=== PATIENT | female | born 1955 | race Caucasian/White ===

== ENCOUNTER 2019-07-11 11:17 | Outpatient (CLI) | payer OTHER, SELFPAY ==
--- NOTE | 2019-07-11 11:18 | MM_ITS ---
WS: [id number] BILATERAL DIGITAL SCREENING MAMMOGRAPHY WITH CAD CLINICAL INFORMATION: SCREENING HISTORY: Screening mammogram. No current complaints. COMPARISON: TECHNIQUE: Bilateral CC and MLO views. FINDINGS: The breasts are composed of heterogeneous fibroglandular density tissue, which can limit the detectio n of small underlying mass lesions. No suspicious mass, asymmetry, calcifications, or architectural d istortion. No evidence of malignancy. MM/[place] [id number] IMPRESSION: BI-RADS: 1-Negative FOLLOW UP: 1 Year Follow-up Recommend return to annual screening mammography.
== END 2019-07-11 11:18 | disposition home or self-care (01) ==
LOC: RADSHAW 11:17
PROVIDERS: Family Provider Internal Medicine; PCP Internal Medicine; Visit Provider Internal Medicine
DX: Z12.31 Encounter for screening mammogram for malignant neoplasm of breast (principal)
CPT/HCPCS: 77067

== ENCOUNTER 2020-01-03 13:27 | Outpatient (RCR) | payer OTHER, SELFPAY | END 2020-01-21 23:59 | disposition home or self-care (01) | LOC: SPT 13:27 | PROVIDERS: PCP Internal Medicine; Referring Provider Internal Medicine; Visit Provider Internal Medicine | DX: R68.89 Other general symptoms and signs (principal) | CPT/HCPCS: 97110; 97161 ==

== ENCOUNTER 2020-01-22 06:00 | Outpatient (RCR) | payer OTHER, SELFPAY | END 2020-02-20 23:59 | disposition home or self-care (01) | LOC: SPT 06:00 | PROVIDERS: PCP Internal Medicine; Referring Provider Internal Medicine; Visit Provider Internal Medicine | DX: R68.89 Other general symptoms and signs (principal) | CPT/HCPCS: 97110 ==

== ENCOUNTER 2020-02-21 06:00 | Outpatient (RCR) | payer OTHER, SELFPAY | END 2020-03-22 23:59 | disposition home or self-care (01) | LOC: SPT 06:00 | PROVIDERS: PCP Internal Medicine; Referring Provider Internal Medicine; Visit Provider Internal Medicine | DX: R68.89 Other general symptoms and signs (principal) | CPT/HCPCS: 97110 ==

== ENCOUNTER 2020-08-25 15:15 | Outpatient (CLI) | payer OTHER, SELFPAY ==
--- NOTE | 2020-08-25 15:21 | MM_ITS ---
WS: [id number] BILATERAL DIGITAL SCREENING MAMMOGRAPHY WITH CAD CLINICAL INFORMATION: SCREENING HISTORY: Screening mammogram. No current complaints. COMPARISON: July 11, 2019 TECHNIQUE: Bilateral CC and MLO views. FINDINGS: The breasts are composed of heterogeneous fibroglandular density tissue, which can limit the detectio n of small underlying mass lesions. No suspicious mass, asymmetry, calcifications, or architectural d istortion. No evidence of malignancy. MM/[place] [id number] IMPRESSION: BI-RADS: 2-Benign FOLLOW UP: 1 Year Follow-up Recommend return to annual screening mammography.
== END 2020-08-25 15:16 | disposition home or self-care (01) ==
LOC: RADSHAW 15:19
PROVIDERS: PCP Internal Medicine; Visit Provider Internal Medicine
DX: Z12.31 Encounter for screening mammogram for malignant neoplasm of breast (principal)
CPT/HCPCS: 77067

== ENCOUNTER 2020-11-11 08:04 | Outpatient (CLI) | payer SELFPAY ==
[2020-11-11 08:28] LABS: HF Add Manual Diff No
[2020-11-11 08:45] LABS: Basophils % 0.7 %; Eosinophils # 0.1 10^3/uL (0.0-0.8); Eosinophils % 2.5 %; Hematocrit 38.1 % (37.0-47.0); Hemoglobin 12.2 g/dL (11.5-15.3); Lymphocytes # 1.8 10^3/uL (0.8-4.8); Lymphocytes % 31.7 %; Mean Corpuscular Hemoglobin 28.3 pg (28.0-34.0); Mean Corpuscular Volume 88.4 fL (81-99); Mean Platelet Volume 9.2 fL (7.4-10.4); Monocytes # 0.4 10^3/uL (0.2-0.9); Monocytes % 7.5 %; Neutrophils # 3.21 10^3/uL (1.8-7.7); Neutrophils % 57.2 %; Nucleated Red Blood Cells % 0 %; Platelet Count 255 10^3/cmm (130-400); Red Blood Count 4.31 10^6/uL (4.1-5.3); Red Cell Distribution Width 13.3 % (12.1-15.1); White Blood Count 5.6 10^3/uL (4.0-10.0)
[2020-11-11 08:59] LABS: Alanine Aminotransferase 14 U/L (0-33); Albumin Level 4.3 g/dL (3.5-5.2); Alkaline Phosphatase 47 IU/L (35-105); Anion Gap 10.3 (5-19); Aspartate Amino Transferase 19 U/L (0-32); Blood Urea Nitrogen 16 mg/dL (8-23); Calcium 8.7 mg/dL (8.5-10.5); Carbon Dioxide 28 mmol/L (22-29); Chloride 105 mmol/L (98-107); Chol HDL Ratio 3.03 mg/dL (0.0-4.40); Cholesterol 215 mg/dL (0-200); Globulin 2.9 g/dL (1.3-4.6); Glomerular Filtration Rate 84.5 mL/min (90-130); Glucose 104 mg/dL (65-115); HDL Cholesterol 71 mg/dL (60-100); LDL Cholesterol Calculated 122 mg/dL (50-129); LDL HDL Ratio 1.72 RATIO (0.00-3.22); Osmolality Calculated 289 mOsm/kg (285-295); Potassium 4.3 mmol/L (3.5-5.1); Sodium 139 mmol/L (136-145); Total Bilirubin 0.4 mg/dL (0.15-1.2); Total Protein 7.2 g/dL (6.6-8.7); Triglycerides 109 mg/dL (0-150)
[2020-11-11 09:18] LABS: Estmated Average Glucose 103; Hemoglobin A1C 5.2 % (4.0-6.0)
== END 2020-11-11 08:05 | disposition home or self-care (01) ==
PROVIDERS: PCP Internal Medicine; Visit Provider Dermatology
DX: Z13.9 Encounter for screening, unspecified (principal)

== ENCOUNTER → 2020-12-22 09:46 | Outpatient (BNVA) | payer OTHER, SELFPAY | PROVIDERS: PCP Internal Medicine; Referring Provider Internal Medicine; Visit Provider Podiatrist Foot & Ankle Surgery | DX: M79.671 Pain in right foot (principal); M79.672 Pain in left foot | CPT/HCPCS: 73630 ==

== ENCOUNTER 2020-12-31 12:56 | Outpatient (RCR) | payer OTHER, SELFPAY | END 2021-01-20 23:59 | disposition home or self-care (01) | LOC: SPT 12:56 | PROVIDERS: PCP Internal Medicine; Referring Provider Podiatrist Foot & Ankle Surgery; Visit Provider Podiatrist Foot & Ankle Surgery | DX: M72.9 Fibroblastic disorder, unspecified (principal) | CPT/HCPCS: 97033; 97140; 97162 ==

== ENCOUNTER 2021-01-24 13:34 | Emergency (ER) | payer OTHER, SELFPAY ==
[2021-01-24 13:51] VITALS: BP 127/74; PULSE 93; RESP 16; TEMP 36.1; O2SAT 99; BMI 30.5
--- NOTE | 2021-01-24 14:05 | XRR_ITS ---
PROCEDURE INFORMATION: Exam: XR Left Foot Exam date and time: 01/24/2021 2:05 PM Age: 65 years old Clinical indication: Injury or trauma; Fall; Blunt trauma; Foot; Left TECHNIQUE: Imaging protocol: XR Left foot. Views: 3 or more views. COMPARISON: No relevant prior studies available. FINDINGS: Bones/joints: Transverse fracture through the base of the 5th metatarsal with a few small displaced fragments. Soft tissues: Soft tissue swelling adjacent to the fracture site. XR/XR foot LT min 3V* [id number] IMPRESSION: Transverse fracture through the base of the 5th metatarsal.
--- NOTE | 2021-01-24 14:46 | W.ED.EXTPRO ---
HPI - Extremity Problem General: Chief complaint: Extremity Injury, Lower Stated complaint: L foot injury Time Seen by Provider: 01/24/21 14:04 Source: patient Mode of arrival: wheelchair Limitations: no limitations History of Present Illness: HPI Narrative: Patient misstep while holding a laundry basket. Twisted left foot at 10 AM today. At home is elevated, taken ibuprofen, and used ice therapy but pain has become more intense. Patient is no longer able to ambulate. Pain Consistency: constant Location: left Severity scale (1-10): 6 Quality: dull and constant Radiation: none Relieving factors: nothing Exacerbating factors: weight bearing and walking Associated symptoms: Reports no associated symptoms Review of Systems General: Reports: 10 or more systems reviewed and unremarkable except in HPI and below PFSH ED PFSH: Medical History (Updated 01/24/21 @ 15:41 by Fidelina Nixon APRN) Hot flashes, menopausal Irritable bowel syndrome with diarrhea Vitamin B12 deficiency neuropathy Surgical History S/P cholecystectomy S/P colonoscopy Status post carpal tunnel release of both wrists Family History Mother Stroke Other Cancer Hypertension Social History Smoking and tobacco status: never smoked Alcohol intake: current Alcohol intake frequency: few times a week Alcohol type: wine History of recent travel: No Physical Exam Const: COMMON NORMALS: no acute distress, average body habitus, patient oriented x3, no limitations, healthy appearing, alert and well nourished GENERAL APPEARANCE: cooperative, comfortable and well kempt HENMT: COMMON NORMALS: normocephalic, atraumatic, hearing grossly normal bilaterally, external ears normal, EAC's normal, TM's normal bilaterally, Normal external nose present, Normal nasal mucous membranes and turbinates present, moist oral mucous membranes and oropharynx normal HEAD & SCALP: normal to inspection, normocephalic and atraumatic NOSE: Normal external nose present and Normal nasal mucous membranes and turbinates present EXTERNAL EAR: Yes external ears normal EXTERNAL AUDITORY CANAL: EAC's normal TYMPANIC MEMBRANE: TM's normal bilaterally Eye: COMMON NORMALS: Equal, round and reactive pupils present, EOMs intact bilaterally, conjunctivae normal, no scleral icterus, no papilledema, normal visual freeman by confrontation and fundi normal bilaterally GENERAL EYE: appearance normal, both eyes and all related structures CONJUNCTIVA: Yes conjunctivae normal PUPIL: Yes Equal, round and reactive pupils present DIRECT OPHTHALMOSCOPY: Yes no papilledema and Yes fundi normal bilaterally Neck/C-Spine: COMMON NORMALS: full ROM, no lymphadenopathy and no JVD Lymph: LYMPHATIC: no lymphadenopathy noted Resp: COMMON NORMALS: normal respiratory effort, No retractions, No use of accessory muscles and clear to auscultation bilaterally EFFORT & INSPECTION: Yes able to speak in complete sentences AUSCULTATION: clear to auscultation bilaterally Cardio: COMMON NORMALS: no JVD, regular rate, S1 normal heart sound present and S2 normal heart sound present RATE: regular rate HEART SOUNDS: S1 normal heart sound present and S2 normal heart sound present GI: COMMON NORMALS: Normal to inspection, nondistended, normoactive bowel sounds present Extremity: GENERAL: Yes normal exam except as noted LEFT LOWER EXTREMITY: Yes ankle joint Left ankle: Yes inspection (Diffuse edema nonpitting), Yes ROM (Limited due to pain) and Yes neurovascular exam (Intact) Neuro: COMMON NORMALS: patient oriented x3, moves all extremities, no focal motor deficits and no sensory deficits noted SENSORIUM/ORIENTATION: Yes alert Psych: COMMON NORMALS: mental status grossly normal, Normal thought process present, cooperative, normal affect, speech normal, activity/motor behavior normal, denies hallucinations, denies homicidal ideation and denies suicidal ideation APPEARANCE: Yes well kempt SPEECH: Yes normal speech THOUGHT PROCESS: Normal thought process present Skin: COMMON NORMALS: no rashes or lesions noted, no wounds, turgor normal, no jaundice, no petechiae and no mottling GENERAL SKIN EXAM: no rashes or lesions noted and turgor normal Course Vital Signs: Vital signs: Vital Signs Temperature 96.9 F L 01/24/21 13:51 Pulse Rate 93 01/24/21 13:51 Respiratory Rate 16 01/24/21 13:51 Blood Pressure 127/74 01/24/21 13:51 Pulse Oximetry 99 01/24/21 13:51 MDM - Extremity (Nontraumatic) MDM Narrative: Medical decision making narrative: Patient established with Dr. Zhou podiatry and prefers to follow-up with him. We will schedule to follow-up with podiatry for metatarsal fracture within the next week. Patient is immobilized with splint and currently using crutches. Imaging Data^: Xray Ortho: Radiologist's impression: [id number], [place] [address]WObs ReportSigned Patient: No Aguilar #: [id number]: [id number]#:[id number]/Sex: 65 / FADM Date: 01/24/21Loc: ERRoom/Bed:Attending Dr: Ordering Provider/Ordering MD: Fidelina Nixon Date of Service: 01/24/21 Procedure(s): XR foot LT min 3V* [id number] Accession Number(s): [id number] Report Number: [id number] PROCEDURE INFORMATION: Exam: XR Left Foot Exam date and time: 01/24/2021 2:05 PM Age: 65 years old Clinical indication: Injury or trauma; Fall; Blunt trauma; Foot; Left TECHNIQUE: Imaging protocol: XR Left foot. Views: 3 or more views. COMPARISON: No relevant prior studies available. FINDINGS: Bones/joints: Transverse fracture through the base of the 5th metatarsal with a few small displaced fragments. Soft tissues: Soft tissue swelling adjacent to the fracture site. XR/XR foot LT min 3V* [id number] IMPRESSION: Transverse fracture through the base of the 5th metatarsal. Other Imaging: Radiologist's impression: [place] [id number], [place] [address]HIby ReportSigned Patient: No Aguilar #: [id number]: [id number]#:[id number]/Sex: 65 / FADM Date: 01/24/21Loc: ERRoom/Bed:Attending Dr: Ordering Provider/Ordering MD: Fidelina Nixon Date of Service: 01/24/21 Procedure(s): XR ankle LT min 3V* [id number] Accession Number(s): [id number] Report Number: [id number] PROCEDURE INFORMATION: Exam: XR Left Ankle Exam date and time: 01/24/2021 2:53 PM Age: 65 years old Clinical indication: Injury or trauma; Fall; Blunt trauma; Ankle; Left; Additional info: Ankle injury TECHNIQUE: Imaging protocol: XR Left ankle. Views: 3 or more views. COMPARISON: CR (LOW EXM, ) 01/24/2021 2:40 PM FINDINGS: Bones/joints: No acute fracture. Joint spaces are preserved. Soft tissues: Soft tissue swelling around the ankle. XR/XR ankle LT min 3V* [id number] IMPRESSION: No acute osseous abnormalities of the left ankle. Dictated By:Franky Escobar DOSigned By:Franky Escobar DOSigned Date/Time:01/24/21 1520DD/ 151 Discharge Plan Discharge Patient Disposition: Home Clinical Impression: Metatarsal fracture Qualifiers: Encounter type: initial encounter Metatarsal bone: fifth Fracture type: closed Fracture alignment: displaced Laterality: left Qualified Code(s): S92.352A - Displaced fracture of fifth metatarsal bone, left foot, initial encounter for closed fracture Condition: Stable Prescriptions: New hydrocodone-acetaminophen 5-325 mg tablet 1 tab PO Q6H 7 Days Qty: 28 RF: 0 No Action [id number]-algal oil [Foltanx RF] 3 mg-35 mg-2 mg -90.314 mg capsule 1 cap PO BID RF: 0 Darcy's wort 300 mg capsule 300 mg PO TID RF: 0 melatonin 5 mg capsule PO RF: 0 naproxen sodium [Aleve] 220 mg tablet 220 mg PO BID PRNRF: 0 omega-3 fatty acids 1,000 mg capsule 1,000 mg PO BID RF: 0 calcium carbonate-vitamin D3 [Calcium 500 + D] 500 mg(1,250mg) -400 unit tablet 1 tab PO BID RF: 0 cyanocobalamin (vitamin B-12) 1,000 mcg/mL solution 1,000 mcg IM ONCE Qty: 100 RF: 0 medroxyprogesterone 2.5 mg tablet 1.25 mg PO DAILY Qty: 90 RF: 3 (DME) Custom Molded Sole Supports See Rx Instructions .Route .MEDSUPPLY Qty: 1 RF: 0 estradiol 0.5 mg tablet See Rx Instructions .ROUTE .COMPLEX Qty: 90 RF: 2 Discharge Orders: Discharge ED (Routine); Ordered 01/24/21 Ordered By: Fidelina Nixon Referrals: Edil Roberson MD [Primary Care Provider] - Hong Zhou DPM [Physician] - 4-7 days Discharge Diet: Usual diet Discharge Activity: Limit activity as instructed Patient Instructions: Opioid Safety Coding Level of Care Code ED Boilermaker Pipe Fitter for Chg Fwd Exam Comprehensive
--- NOTE | 2021-01-24 14:53 | XRR_ITS ---
PROCEDURE INFORMATION: Exam: XR Left Ankle Exam date and time: 01/24/2021 2:53 PM Age: 65 years old Clinical indication: Injury or trauma; Fall; Blunt trauma; Ankle; Left; Additional info: Ankle injury TECHNIQUE: Imaging protocol: XR Left ankle. Views: 3 or more views. COMPARISON: CR (LOW EXM, ) 01/24/2021 2:40 PM FINDINGS: Bones/joints: No acute fracture. Joint spaces are preserved. Soft tissues: Soft tissue swelling around the ankle. XR/XR ankle LT min 3V* [id number] IMPRESSION: No acute osseous abnormalities of the left ankle.
[2021-01-24 16:19] VITALS: BP 117/69; PULSE 72; RESP 14; TEMP 36.6; O2SAT 99
== END 2021-01-24 16:28 | disposition home or self-care (01) ==
PROVIDERS: Emergency Provider Nurse Practitioner Family; PCP Internal Medicine
DX: S92.352A Displaced fracture of fifth metatarsal bone, left foot, initial encounter for closed fracture (principal); X50.1XXA Overexertion from prolonged static or awkward postures, initial encounter
CPT/HCPCS: 29515; 73610; 73630; 99283; E0114

== ENCOUNTER 2021-01-29 14:28 | Outpatient (CLI) | payer OTHER, SELFPAY | END 2021-01-29 14:29 | disposition home or self-care (01) | LOC: SPT 14:28 | PROVIDERS: PCP Internal Medicine; Visit Provider Podiatrist Foot & Ankle Surgery | DX: Z46.89 Encounter for fitting and adjustment of other specified devices (principal); M72.2 Plantar fascial fibromatosis | CPT/HCPCS: 97760; L4361 ==

== ENCOUNTER → 2021-02-02 10:02 | Outpatient (BNVA) | payer OTHER, SELFPAY | PROVIDERS: PCP Internal Medicine; Visit Provider Podiatrist Foot & Ankle Surgery | DX: Z01.812 Encounter for preprocedural laboratory examination (principal); Z20.822 Contact with and (suspected) exposure to COVID-19 | CPT/HCPCS: 87635 ==

== ENCOUNTER 2021-02-06 06:16 | Day surgery (SDC) | payer OTHER, SELFPAY ==
[2021-02-05 13:42] VITALS: BMI 28.7
[2021-02-06] VITALS (8 sets, daily range): BP systolic 107–146; BP diastolic 67–76; PULSE 67–94; RESP 12–22; TEMP 36.3–36.6; O2SAT 96–100
--- NOTE | 2021-02-06 | SCC_ITS ---
Procedure Done: Open reduction internal fixation left fifth metatarsal fracture CPT code 23946 3 seconds of fluoroscopic guidance, for a cumulative dose of 0.047 mGy, was provided to Dr. Zhou by the radiology department. C-arm images of the LEFT foot were saved for the patient's permanent record. [facility]
[2021-02-06] MEDS: sodium chloride 0.9% 1,000 ML 30 ML IV (07:12)
--- NOTE | 2021-02-06 08:24 | ANES.PREANE2 ---
Pre-Anesthetic Assessment Pre-Anesthetic Assessment: Height/Weight: Height 1.57 m Weight 71.214 kg Temp Pulse Resp BP Pulse Ox 97.9 F 71 18 131/69 99 02/06/21 06:39 02/06/21 06:39 02/06/21 06:39 02/06/21 06:39 02/06/21 06:39 Preop Diagnosis: Left fifth metatarsal fracture Proposed Procedure: Operation Date: 02/06/21 08:00 Proposed Procedures p ORIF Metatarsal 70326 S92.352A(Left) - Hong Zhou DPM Was Beta Sandra taken within 24 hours: N/A Was Clonidine taken within 24 hours: N/A Last intake: Intake Last Liquid Date 02/05/21 Last Liquid Time 23:30 Last Solid Date 02/05/21 Last Solid Time 23:30 Social: Social History: No alcohol and No tobacco Exam: Pre-Anes Outpt Exam: alert, oriented x 3, clear to auscultation bilaterally and regular rate & rhythm Airway: Submandibular: WNL Cervical ROM: WNL MP: 2 Dentition: Full History/ROS: No significant history except as noted GI: Comments: IBS Neuropsych: Neuropsych: Neuropathy (B12 def) Anesthetic Plan: ASA status: 2 Anesthesia: MAC Risk of > 500 ml blood loss (7ml/kg in children): No Meds/Allergies Current Medications: Current Medications Generic Name Dose Route Start Last Admin Trade Name Freq PRN Reason Stop Dose Admin Sodium Chloride 1,000 mls @ 30 ml s/hr 02/06/21 06:45 02/06/21 07:12 Sodium Chloride 0.9% IV 02/07/21 06:44 30 mls/hr .Q24H MARTHA Administration PFSH Anesthesia PFSH: Medical History (Updated 02/02/21 @ 07:36 by Hong Zhou DPM) Hot flashes, menopausal Irritable bowel syndrome with diarrhea Vitamin B12 deficiency neuropathy Surgical History S/P cholecystectomy S/P colonoscopy Status post carpal tunnel release of both wrists Family History Mother Stroke Other Cancer Hypertension Social History Smoking and tobacco status: never smoked Alcohol intake: current Alcohol intake frequency: few times a week Alcohol type: wine History of recent travel: No Data Anesthesia Cardiac Studies: No Data to Display
--- NOTE | 2021-02-06 09:06 | P.HPUD_ITS ---
Surgery/Procedure H&P Update DATE OF PROCEDURE: February 06, 2021 DATE H&P PERFORMED: 01/29/21 H&P UPDATE INFORMATION: I have reviewed H&P completed within last 30 days, I have examined patient prior to procedure, No changes to prior documentation and H&P is in [facility] EMR on date indicated PREOP DIAGNOSIS: Left fifth metatarsal fracture PLANNED PROCEDURE: Operation Date: 02/06/21 08:00 Proposed Procedures p ORIF Metatarsal 75445 S92.352A(Left) - Hong Zhou DPM
[2021-02-06] MEDS: lidocaine 1% INJ 20 mL 15 ML INJECTION (10:16)
--- NOTE | 2021-02-06 10:33 | P.PCN_ITS ---
PACU note PACU note: VSS, Good respiratory effort, report to COLLECTIONS REPRESENTATIVE Post-Anesthesia Exam: awake
--- NOTE | 2021-02-06 10:33 | PM.PACU ---
PACU note PACU note: VSS, Good respiratory effort, report to EVENT TECHNICIAN Post-Anesthesia Exam: awake
--- NOTE | 2021-02-06 10:34 | XR_ITS ---
WS: [id number] XR foot LT min 3V* [id number] REASON FOR EXAM: Postoperative ORIF left fifth metatarsal with hook plate FINDINGS: Plate and screw fixation of horizontal fracture through the proximal most fifth metatarsal. Surgical appliance and fracture fragments are in good position and alignment. XR/XR foot LT min 3V* [id number] IMPRESSION: Postoperative left foot as above.
--- NOTE | 2021-02-06 10:36 | P.OP_ITS ---
Operative Report Date of procedure: February 06, 2021 Pre-op Diagnosis: Left fifth metatarsal fracture Post-op diagnosis: same Post-op Findings: Fracture of the left fifth metatarsal Procedure Done: Open reduction internal fixation left fifth metatarsal fracture CPT code 21611 Implants: Arlington 28 Smith hook plate, Arlington 28 2.5 mm locking screws x3, 3-0 Vicryl, 4-0 nylon Specimens removed/disposition: None Pathology: none sent Surgeon: Hong Zhou D.P.M. [employer] Counter Assistant: Jhon Anesthesia: MAC Estimated blood loss: Less than 5 mL Tourniquet time: Approximately 35 minutes IV fluids: None Urine output: None Complications: None Findings: None Condition: stable Disposition: PACU Brief History: Patient sustained a left fifth metatarsal fracture after discussing potential delayed healing due to this injury being notorious for delayed healing due to tendinous insertion and decreased vascularity her preference was open reduction internal fixation to help reduce nonunion or delayed healing. Risks include pain, bleeding, numbness, infection, hardware irritation, hardware failure, delayed union, malunion, nonunion, damage to adjacent soft tissue structures, chronic swelling, neuritis, need for further surgical intervention. Patient is agreeable wishes to proceed, no guarantees written, expressed or implied. Informed consent signed by patient myself, Covid screening negative, she has been n.p.o. since midnight initialed her left foot. Procedure: Under mild sedation the patient was brought to the operating room and placed on the operating table in supine position. A timeout was performed. Anesthesia was then administered by the anesthesia service. Local anesthesia injected by myself reverse Hart block left foot. Total of 30 cc of one-to-one mixture 1% lidocaine 0.5 sent Marcaine plain. Well-padded pneumatic tourniquet applied to the left ankle. Left lower extremity was then scrubbed, prepped and draped utilizing normal aseptic technique. Left foot was wrapped with an Esmarch bandage and the tourniquet inflated to 250 mmHg. Attention was directed to the dorsal lateral aspect of the left fifth metatarsal which was palpated and skin incision planned out in a curvilinear fashion a incision was made with a #15 blade directly over the fifth metatarsal base. Dissection carried down to the periosteum and extensor retinaculum utilizing combination of blunt and sharp technique. Care was taken to retract and preserve neurovascular and tendinous structures. All bleeders were ligated and cauterized as necessary. Periosteal incision was made and the fifth metatarsal fracture was evacuated of its hematoma with curettage of the bone. This was then flushed with saline solution reduced and fixated utilizing a Arlington 28 Smith double hook plate with excellent bony apposition and compression noted. This was confirmed with intraoperative fluoroscopy. Total of 3 screws locking were utilized distal to the fracture these were 2.5 millimeter screws. Confirm placement with intraoperative C arm noted to be excellent in all 3 planes. Stable fracture appreciated. The incision was flushed with saline solution, extensor retinaculum and subcutaneous tissue closed with 3-0 Vicryl. Skin closed with 4-0 nylon in a horizontal mattress technique. Incision was then dressed with Adaptic, sterile 4 x 4's, Kerlix and Mack wrap and tourniquet was deflated and a prompt hyperemic response was noted to the distal digits of the left foot. Patient tolerated the procedure and anesthesia well and was transferred to the PACU with vital signs stable and vascular status intact. Following a period of postoperative monitoring she will be discharged home is to remain nonweightbearing to the left lower extremity she will keep your postoperative dressings clean, dry and intact for 1 week follow-up next Tuesday on February 13, 2021 for nurse visit and dressing change. She was prescribed hydrocodone 10/325 mg to be taken every 4-6 hours as needed for pain. May heel touch only for transfers. She was given discharge instructions and my cell phone number to contact with any postoperative questions or concerns.
[2021-02-06] MEDS: HYDROcodone-acetaminophen 10-325 mg Tablet 1 TAB PO (11:13)
--- NOTE | 2021-02-06 13:37 | ANE.PACU2 ---
Inpatient post-anesthesia follow up: Airway intact: Yes Vital signs: Temperature 97.3 F Pulse Rate 67 Respiratory Rate 15 Blood Pressure 126/72 Pulse Oximetry 99 Oxygen Delivery Me thod Room Air Oxygen Flow Rate Fraction of Inspir ed Oxygen Hydration adequate: Yes Nausea and vomiting: No Pain level: 2 Mental status: Baseline
== END 2021-02-06 11:31 | disposition home or self-care (01) ==
PROVIDERS: PCP Internal Medicine; Visit Provider Podiatrist Foot & Ankle Surgery
PROC: (CPT 28485; principal; 2021-02-06 07:50)
DX: S92.352G Displaced fracture of fifth metatarsal bone, left foot, subsequent encounter for fracture with delayed healing (principal); W19.XXXD Unspecified fall, subsequent encounter
CPT/HCPCS: 28485; 73630; 76000; C1713; J0690; J2704; J3010; J3490; J7030

== ENCOUNTER → 2021-02-13 08:32 | Outpatient (BNVA) | payer OTHER, SELFPAY | PROVIDERS: PCP Internal Medicine; Visit Provider Podiatrist Foot & Ankle Surgery | DX: S92.352D Displaced fracture of fifth metatarsal bone, left foot, subsequent encounter for fracture with routine healing (principal); X58.XXXD Exposure to other specified factors, subsequent encounter | CPT/HCPCS: 73630 ==

== ENCOUNTER → 2021-02-19 09:31 | Outpatient (BNVA) | payer OTHER, SELFPAY | PROVIDERS: PCP Internal Medicine; Visit Provider Podiatrist Foot & Ankle Surgery | DX: M79.671 Pain in right foot (principal); M79.672 Pain in left foot | CPT/HCPCS: 73630 ==

== ENCOUNTER → 2021-03-05 10:19 | Outpatient (BNVA) | payer OTHER, SELFPAY | PROVIDERS: PCP Internal Medicine; Visit Provider Podiatrist Foot & Ankle Surgery | DX: Z47.89 Encounter for other orthopedic aftercare (principal); S92.352D Displaced fracture of fifth metatarsal bone, left foot, subsequent encounter for fracture with routine healing; X58.XXXD Exposure to other specified factors, subsequent encounter | CPT/HCPCS: 73630 ==

== ENCOUNTER → 2021-03-23 14:23 | Outpatient (BNVA) | payer OTHER, SELFPAY | PROVIDERS: PCP Internal Medicine; Visit Provider Podiatrist Foot & Ankle Surgery | DX: M79.671 Pain in right foot (principal); M79.672 Pain in left foot; Z47.89 Encounter for other orthopedic aftercare; S92.352D Displaced fracture of fifth metatarsal bone, left foot, subsequent encounter for fracture with routine healing; X58.XXXD Exposure to other specified factors, subsequent encounter | CPT/HCPCS: 73630 ==

== ENCOUNTER → 2021-04-06 13:09 | Outpatient (BNVA) | payer OTHER, SELFPAY | PROVIDERS: PCP Internal Medicine; Visit Provider Podiatrist Foot & Ankle Surgery | DX: Z47.89 Encounter for other orthopedic aftercare (principal); S92.352D Displaced fracture of fifth metatarsal bone, left foot, subsequent encounter for fracture with routine healing; X58.XXXD Exposure to other specified factors, subsequent encounter | CPT/HCPCS: 73630 ==

== ENCOUNTER → 2021-05-20 08:02 | Outpatient (BNVA) | payer OTHER, SELFPAY | PROVIDERS: PCP Internal Medicine; Visit Provider Podiatrist Foot & Ankle Surgery | DX: Z98.890 Other specified postprocedural states (principal); S92.355D Nondisplaced fracture of fifth metatarsal bone, left foot, subsequent encounter for fracture with routine healing; X58.XXXD Exposure to other specified factors, subsequent encounter | CPT/HCPCS: 73630 ==

== ENCOUNTER 2021-06-02 07:14 | Outpatient (RCR) | payer OTHER, SELFPAY | END 2021-06-22 23:59 | disposition home or self-care (01) | LOC: SPT 07:14 | PROVIDERS: PCP Internal Medicine; Referring Provider Podiatrist Foot & Ankle Surgery; Visit Provider Podiatrist Foot & Ankle Surgery | DX: M72.2 Plantar fascial fibromatosis (principal) | CPT/HCPCS: 97161 ==

== ENCOUNTER → 2021-06-11 13:01 | Outpatient (BNVA) | payer OTHER, SELFPAY | PROVIDERS: PCP Internal Medicine; Visit Provider Podiatrist Foot & Ankle Surgery | DX: M79.672 Pain in left foot (principal); M72.2 Plantar fascial fibromatosis; Z98.890 Other specified postprocedural states | CPT/HCPCS: 73630 ==

== ENCOUNTER 2021-07-06 14:36 | Outpatient (CLI) | payer OTHER, SELFPAY | END 2021-07-06 14:37 | disposition home or self-care (01) | LOC: SPT 14:37 | PROVIDERS: PCP Internal Medicine; Visit Provider Podiatrist Foot & Ankle Surgery | DX: Z47.89 Encounter for other orthopedic aftercare (principal); M72.2 Plantar fascial fibromatosis; M79.672 Pain in left foot | CPT/HCPCS: 97760; L3030 ==

== ENCOUNTER 2021-07-14 08:58 | Outpatient (CLI) | payer OTHER, SELFPAY ==
--- NOTE | 2021-07-14 09:00 | XR_ITS ---
WS: [id number] SCREENING DEXA SCAN Blockboard CLINICAL INFORMATION: recent fracture COMPARISON: None. FINDINGS: The L1-L4 bone mineral density measures 1.170 g/cm2. This corresponds to a T score score of -0.1 and Z score of 1.1. Left femoral neck bone mineral density measures 1.032 g/cm2. This corresponds to a T score of 0.2 and Z score of 1.1. Right femoral neck bone mineral density measures 1.033 g/cm2. This corresponds to a T score 0.2of and Z score of 1.1. Mean femoral neck bone mineral density measures 1.033 g/cm2. This corresponds to a T score of 0.2 and Z score of 1.1. XR/XR DEXA axial skeleton* [id number] IMPRESSION: Normal bone mineralization. Patient's FRAX calculated 10 year probability for major osteoporotic fracture i s 10.0 % and osteoporotic hip fracture is 0.2%.
== END 2021-07-14 08:59 | disposition home or self-care (01) ==
LOC: RAD 09:01
PROVIDERS: PCP Internal Medicine; Visit Provider Internal Medicine
DX: S92.902A Unspecified fracture of left foot, initial encounter for closed fracture (principal); X58.XXXA Exposure to other specified factors, initial encounter
CPT/HCPCS: 77080

== ENCOUNTER 2021-10-13 09:12 | Outpatient (CLI) | payer OTHER, SELFPAY ==
--- NOTE | 2021-10-13 09:24 | MM_ITS ---
WS: [id number] VIEWS: MLO and CC views both breasts. 3D digital tomosynthesis is also included in this exam. Comparison made with prior exam of 04/01/2015, 05/05/2016, 05/30/2017. 06/19/2018, 07/11/2019, 08/25/2020. Findings: There was no sign of mass, architectural distortion or suspicious calcification in either breast. He terogeneously dense MM/[place] [id number] Impression: BI-RADS: 2-Benign FOLLOW-UP: 1 Year Follow-up This mammogram was also analyzed by the Computer Aided Detection System R2 Imag e Mulling Machine Operator.
== END 2021-10-13 09:13 | disposition home or self-care (01) ==
PROVIDERS: PCP Internal Medicine; Visit Provider Internal Medicine
DX: Z12.31 Encounter for screening mammogram for malignant neoplasm of breast (principal)
CPT/HCPCS: 77063; 77067

== ENCOUNTER 2021-11-03 08:34 | Outpatient (CLI) | payer OTHER, SELFPAY ==
[2021-11-03 09:14] LABS: HF Add Manual Diff No
[2021-11-03 09:20] LABS: Basophils % 0.7 %; Eosinophils # 0.1 10^3/uL (0.0-0.8); Hematocrit 36.6 % (37.0-47.0); Hemoglobin 12.2 g/dL (11.5-15.3); Lymphocytes # 1.9 10^3/uL (0.8-4.8); Lymphocytes % 32.3 %; Mean Corpuscular HGB Conc 33.3 g/dL (30.0-36.0); Mean Corpuscular Hemoglobin 28.4 pg (28.0-34.0); Mean Corpuscular Volume 85.1 fl (81-99); Mean Platelet Volume 9.2 fL (7.4-10.4); Monocytes # 0.4 10^3/uL (0.2-0.9); Neutrophils # 3.46 10^3/uL (1.8-7.7); Neutrophils % 57.7 %; Nucleated Red Blood Cells % 0 %; Platelet Count 244 10^3/cmm (130-400); Red Cell Distribution Width 13.3 % (12.1-15.1)
[2021-11-03 09:36] LABS: Estmated Average Glucose 105; Hemoglobin A1C 5.3 % (4.0-6.0)
[2021-11-03 09:45] LABS: Alanine Aminotransferase 15 U/L (0-33); Albumin Level 4.1 g/dL (3.5-5.2); Alkaline Phosphatase 45 IU/L (35-105); Anion Gap 14.7 (5-19); Aspartate Amino Transferase 18 U/L (0-32); Blood Urea Nitrogen 14 mg/dL (8-23); Calcium 9.2 mg/dL (8.5-10.5); Carbon Dioxide 25 mmol/L (22-29); Chloride 103 mmol/L (98-107); Chol HDL Ratio 2.59 mg/dL (0.0-4.40); Cholesterol 194 mg/dL (0-200); Glomerular Filtration Rate 84.2 mL/min (90-130); Glucose 94 mg/dL (65-115); HDL Cholesterol 75 mg/dL (60-100); LDL Cholesterol Calculated 100 mg/dL (50-129); LDL HDL Ratio 1.33 RATIO (0.00-3.22); Osmolality Calculated 286 mOsm/kg (285-295); Potassium 4.7 mmol/L (3.5-5.1); Sodium 138 mmol/L (136-145); Total Bilirubin 0.5 mg/dL (0.15-1.2); Total Protein 7.1 g/dL (6.6-8.7); Triglycerides 94 mg/dL (0-150)
== END 2021-11-03 08:35 | disposition home or self-care (01) ==
LOC: LAB 08:35
PROVIDERS: PCP Internal Medicine; Visit Provider Dermatology
DX: Z00.8 Encounter for other general examination (principal)
CPT/HCPCS: 36415

== ENCOUNTER → 2022-09-29 12:06 | Outpatient (BNVA) | payer MEDICARE, SELFPAY | PROVIDERS: PCP Family Medicine; Visit Provider Family Medicine | DX: E53.8 Deficiency of other specified B group vitamins (principal); G63 Polyneuropathy in diseases classified elsewhere | CPT/HCPCS: 82607; 85025 ==

== ENCOUNTER 2022-10-15 08:36 | Outpatient (CLI) | payer MEDICARE, SELFPAY ==
--- NOTE | 2022-10-15 08:57 | MM_ITS ---
WS: [id number] BILATERAL SCREENING DIGITAL TOMOSYNTHESIS MAMMOGRAM WITH CAD HISTORY: SCREENING COMPARISON: 10/13/2021, 08/25/2020 Bilateral CC and MLO views with tomosynthesis and synthetic mammography submitted. Computer aided det ection analyzed. Breast composition: The breasts are heterogeneously dense, which may obscure small masses. No suspici ous masses, microcalcifications or architectural distortion. MM/[place] [id number] IMPRESSION: BI-RADS: 1-Negative FOLLOW UP: 1 Year Follow-up
== END 2022-10-15 08:37 | disposition home or self-care (01) ==
PROVIDERS: PCP Family Medicine; Visit Provider Family Medicine
DX: Z12.31 Encounter for screening mammogram for malignant neoplasm of breast (principal)
CPT/HCPCS: 77063; 77067

== ENCOUNTER → 2023-03-02 11:23 | Outpatient (BNVA) | payer MEDICARE, SELFPAY | PROVIDERS: PCP Family Medicine; Visit Provider Family Medicine | DX: K90.89 Other intestinal malabsorption (principal); Z13.6 Encounter for screening for cardiovascular disorders; E53.8 Deficiency of other specified B group vitamins; G63 Polyneuropathy in diseases classified elsewhere | CPT/HCPCS: 80053; 80061; 82607 ==

== ENCOUNTER 2023-10-21 11:00 | Outpatient (CLI) | payer MEDICARE, SELFPAY ==
--- NOTE | 2023-10-21 11:13 | MM_ITS ---
WS: [id number] VIEWS: MLO and CC views both breasts. 3D digital tomosynthesis is also included in this exam. Comparison made with prior exam of 09/22/2007, 11/01/2008, 11/04/2009, 11/06/2010, 12/16/2011, 02/05/2013, , 04/01/2015, 05/05/2016, 05/30/2017, 06/19/2018, 07/11/2019, 08/25/2020, 10/13/2021, 10/15/2022. Findings: There was no sign of mass, architectural distortion or suspicious calcification in either breast. The breasts are heterogeneously dense which may obscure small masses MM/[place] [id number] Impression: BI-RADS: 2-Benign finding. FOLLOW-UP: 1 Year Follow-up This mammogram was also analyzed by the Computer Aided Detection System R2 Imag e Floor Coverings Installer.
== END 2023-10-21 11:01 | disposition home or self-care (01) ==
LOC: RAD 11:01
PROVIDERS: PCP Family Medicine; Visit Provider Family Medicine
DX: Z12.31 Encounter for screening mammogram for malignant neoplasm of breast (principal)
CPT/HCPCS: 77063; 77067

== ENCOUNTER → 2024-03-19 08:29 | Outpatient (BNVA) | payer MEDICARE, SELFPAY | PROVIDERS: PCP Family Medicine; Visit Provider Family Medicine | DX: Z00.00 Encounter for general adult medical examination without abnormal findings (principal); E03.9 Hypothyroidism, unspecified; Z13.6 Encounter for screening for cardiovascular disorders; E53.8 Deficiency of other specified B group vitamins; G63 Polyneuropathy in diseases classified elsewhere | CPT/HCPCS: 80053; 80061; 82607; 84439; 84443; 85025 ==

== ENCOUNTER → 2024-05-09 08:30 | Outpatient (BNVA) | payer MEDICARE, SELFPAY | PROVIDERS: PCP Family Medicine; Visit Provider Family Medicine | DX: E03.9 Hypothyroidism, unspecified (principal) | CPT/HCPCS: 84443 ==

== ENCOUNTER → 2024-06-29 10:21 | Outpatient (BNVA) | payer MEDICARE, SELFPAY | PROVIDERS: PCP Family Medicine; Visit Provider Family Medicine | DX: E03.9 Hypothyroidism, unspecified (principal) | CPT/HCPCS: 84443 ==

== ENCOUNTER 2024-09-28 20:24 | Emergency (ER) | payer MEDICARE, SELFPAY ==
[2024-09-28 20:30] VITALS: BP 133/70; PULSE 79; RESP 16; TEMP 37.2; O2SAT 100; BMI 30.5
--- NOTE | 2024-09-28 20:34 | PC.NURSE ---
Pt. states that she was running around all day without any problems and then at 1900 this evening she began to have the dizziness.
--- NOTE | 2024-09-28 20:49 | CTR_ITS ---
PROCEDURE INFORMATION: Exam: CT Head Without Contrast Exam date and time: 09/28/2024 9:07 PM Age: 69 years old Clinical indication: C/O dizziness with n/v TECHNIQUE: Imaging protocol: Computed tomography of the head without contrast. Radiation optimization: All CT scans at this facility use at least one of these dose optimization techniques: automated exposure control; mA and/or kV adjustment per patient size (includes targeted exams where dose is matched to clinical indication); or iterative reconstruction. COMPARISON: No relevant prior studies available. RADIATION DOSE METRICS: Total DLP (mGy-cm): 1070.22 FINDINGS: Brain: There is mild cerebral atrophy. There are mild deep white matter microangiopathic ischemic changes. No acute hemorrhage is identified. No mass or mass effect is identified. Cerebral ventricles: The ventricles are prominent secondary to atrophy. Paranasal sinuses: The paranasal sinuses are clear. Mastoid air cells: The right mastoid air cells are clear. Fluid within the left mastoid air cells. Bones: No acute osseous abnormalities are seen. Soft tissues: The soft tissues are within normal limits. CT/CT head wo con* [id number] IMPRESSION: 1. No acute intracranial pathology. 2. Fluid within the left mastoid air cells. Correlate with possible mastoiditis.
--- NOTE | 2024-09-28 20:49 | XRR_ITS ---
PROCEDURE INFORMATION: Exam: XR Chest Exam date and time: 09/28/2024 8:59 PM Age: 69 years old Clinical indication: Other: Dizziness TECHNIQUE: Imaging protocol: Radiologic exam of the chest. Views: 1 view. COMPARISON: No relevant prior studies available. FINDINGS: Lungs: No pulmonary consolidation. Pleural spaces: No pleural effusion or pneumothorax. Heart/Mediastinum: The cardiomediastinal silhouette is within normal limits. Bones/joints: No acute osseous abnormalities are seen. XR/XR chest 1V portable [id number] IMPRESSION: No acute cardiopulmonary disease.
--- NOTE | 2024-09-28 21:00 | ECG_ITS ---
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
[2024-09-28 21:02] LABS: Basophils % 0.6 %; Eosinophils # 0.2 10^3/uL (0.0-0.8); Eosinophils % 2.1 %; Hematocrit 34.3 % (36-47); Lymphocytes # 1.9 10^3/uL (0.8-4.8); Lymphocytes % 27.6 %; Mean Corpuscular HGB Conc 31.8 g/dL (30-55); Mean Corpuscular Hemoglobin 27.8 pg (27-33); Mean Corpuscular Volume 87.5 fl (85-98); Mean Platelet Volume 9.4 fL (7.4-10.4); Monocytes # 0.4 10^3/uL (0.2-0.9); Monocytes % 5.6 %; Neutrophils # 4.46 10^3/uL (1.8-7.7); Neutrophils % 63.7 %; Nucleated Red Blood Cells % 0 %; Platelet Count 206 10^3/cmm (157-399); Red Blood Count 3.92 10^6/uL (3.85-5.65); Red Cell Distribution Width 13.2 % (12.1-15.1)
[2024-09-28 21:03] VITALS: BP 136/82; PULSE 89; O2SAT 98
[2024-09-28 21:13] LABS: Troponin(5th) Baseline < 6 ng/L (0-10)
[2024-09-28 21:14] LABS: Alanine Aminotransferase 10 U/L (0-33); Albumin Level 3.8 g/dL (3.5-5.2); Alkaline Phosphatase 51 U/L (35-105); Anion Gap 14.9 (5-19); Aspartate Amino Transferase 17 U/L (0-32); Blood Urea Nitrogen 17 mg/dL (8-23); Carbon Dioxide 21 mmol/L (22-29); Chloride 108 mmol/L (98-107); Creatinine Clr Calc Pharmacy 65.0232; Globulin 2.6 g/dL (1.3-4.6); Glomerular Filtration Rate 83.5 mL/min (90-130); Glucose 105 mg/dL (65-115); Osmolality Calculated 292 mOsm/kg (285-295); Potassium 3.9 mmol/L (3.5-5.1); Sodium 140 mmol/L (136-145); Total Bilirubin 0.2 mg/dL (0.15-1.2); Total Protein 6.4 g/dL (6.6-8.7)
[2024-09-28] MEDS: diphenhydrAMINE 50 mg/mL SDV 1mL 25 MG IVP (21:30)
[2024-09-28] MEDS: meclizine 25 mg tablet PO (21:30)
[2024-09-28] MEDS: sodium chloride 0.9% 1,000 ML 999 ML IV (21:31)
[2024-09-28] MEDS: prochlorperazine 10 mg/2 mL Inj IVP (21:31)
[2024-09-28 21:38] VITALS: BP 124/65; PULSE 89; O2SAT 100
[2024-09-28 22:38] LABS: Troponin 5 2HR < 6.0 ng/L (0-10); Troponin 5 2HR Delta 0 ABS# (0-10)
[2024-09-28 22:46] LABS: Bilirubin Urine Negative (Negative); Blood Urine Negative (Negative); Glucose Urine UA Negative (Normal); Ketones Urine Trace (Negative); Leukocyte Esterase Urine Trace (Negative); Nitrate Urine Negative (Negative); Protein Urine Negative (Negative); Specific Gravity, Urine 1.009 (1.005-1.030); Urine Appearance Clear (CLEAR); Urine Color Yellow (Yellow); Urobilinogen Urine 0.2 mg/dL (Negative); pH Urine 5.5 (5-7)
[2024-09-28 22:48] LABS: Add Urine Microscopic? YES; Bacteria Urine None Seen /hpf; Hyaline Casts Urine 0-4 /lpf; RBC Urine 0-2 /hpf (0-2); Squamous Epithelial Cell Urine 0-5 /hpf (0-5); WBC Urine 0-5 /hpf (0-5)
[2024-09-28 22:53] VITALS: BP 116/68; PULSE 79; O2SAT 96
--- NOTE | 2024-09-28 22:53 | W.ED.DIZZY ---
HPI - Dizziness General: Chief Complaint: Dizziness Stated Complaint: DIZZY Time Seen by Provider: 09/28/24 20:30 History of Present Illness: HPI Narrative: 69-year-old female who presents emerged part with complaint of dizziness and vertigo. She states that feels like the room is spinning on her whenever she moves her head to the right or when she goes from a laying to sitting position. She states she was outside today working out in the yard and then came in and started to feel like she was very dizzy. At 1 point she became nauseous and diaphoretic. Denies having any chest pain. Denies any numbness or weakness of extremities. Related Data Home Medications ?Medication ?Instructions ?Recorded ?Confirmed naproxen sodium 220 mg tablet 220 mg PO BID PRN Pain, Mild 06/01/19 04/04/24 (Aleve) minoxidil 2 % topical solution 1 ml topical BID 04/04/24 04/04/24 Previous Rx's ?Medication ?Instructions ?Recorded Custom Molded Sole Supports #1 ea 12/22/20 betamethasone dipropionate 0.05 % 1 applic topical DAILY PRN skin 03/02/23 topical cream irritation #15 grams cholestyramine (with sugar) 4 gram See Rx Instructions .Route 05/31/24 oral powder .COMPLEX #378 grams levothyroxine 75 mcg tablet See Rx Instructions .Route 08/31/24 .COMPLEX #90 tabs amoxicillin 875 mg-potassium 1 tab PO Q12H #20 tabs 09/28/24 clavulanate 125 mg tablet cyanocobalamin (vitamin B-12) 1,000 mcg IM Q30D #10 mL 09/28/24 1,000 mcg/mL injection solution prednisone 20 mg tablet 20 mg PO BID 5 days #10 tabs 09/28/24 Allergies Allergy/AdvReac Type Severity Reaction Status Date / Time No Known Allergies Allergy Verified 03/19/24 08:11 [facility] ED PFSH: Medical History (Updated 09/28/24 @ 22:51 by Rick Harris MD) Bile salt-induced diarrhea Plantar fasciitis, left Hot flashes, menopausal Irritable bowel syndrome with diarrhea Vitamin B12 deficiency neuropathy Surgical History (Updated 07/22/22 @ 15:51 by Rasheeda Pinzon MD) History of colonoscopy History of dilatation and curettage History of cataract extraction with lens replacement History of carpal tunnel release of both wrists History of cholecystectomy History of endometrial ablation Family History (Updated 07/19/22 @ 12:10 by Rasheeda Pinzon MD) Mother Stroke Father Cancer melanoma Other Hypertension Social History (Updated 07/19/22 @ 12:15 by Rasheeda Pinzon MD) Smoking and tobacco/nicotine status: never used tobacco/nicotine Alcohol intake: current Alcohol intake frequency: 0-2 Drinks per Day Alcohol type: wine Substance/Drug Use: never Household members: spouse Marital status: Number of children: 2 Current occupational status: retired 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 Sexually active: Yes Physical Exam Const: COMMON NORMALS: patient oriented x3 HENMT: COMMON NORMALS: normocephalic, atraumatic, hearing grossly normal bilaterally, external ears normal, EAC's normal, TM's normal bilaterally, Normal external nose present, Normal nasal mucous membranes and turbinates present, moist oral mucous membranes, oropharynx normal, dentition normal and gingiva normal HEAD & SCALP: normocephalic and atraumatic NOSE: Normal external nose present and Normal nasal mucous membranes and turbinates present EXTERNAL EAR: Yes external ears normal EXTERNAL AUDITORY CANAL: EAC's normal TYMPANIC MEMBRANE: TM's normal bilaterally Neck/C-Spine: COMMON NORMALS: no JVD Resp: COMMON NORMALS: normal respiratory effort, No retractions, No use of accessory muscles, clear to auscultation bilaterally and percussion normal AUSCULTATION: clear to auscultation bilaterally PERCUSSION: percussion normal Cardio: COMMON NORMALS: no JVD, regular rate, regular rhythm, S1 normal heart sound present, S2 normal heart sound present, No gallops present (Cardio), No clicks present (Cardio), No murmurs present (Cardio), No rub (Cardio) and Peripheral pulses 2+ throughout RATE: regular rate RHYTHM: regular rhythm HEART SOUNDS: S1 normal heart sound present and S2 normal heart sound present PERIPHERAL PULSES: Peripheral pulses 2+ throughout GI: COMMON NORMALS: Normal to inspection, nondistended, normoactive bowel sounds present, Soft to palpation, non-tender, No hepatosplenomegaly present, no masses and no bruits PALPATION: Yes Soft to palpation and Yes No hepatosplenomegaly present Neuro: COMMON NORMALS: patient oriented x3, CN's II-XII intact bilaterally, moves all extremities, no focal motor deficits and no sensory deficits noted OTHER: Patient does have reproducible fatigable vertigo. Worsens with movement of the head to the right and when going from a laying to sitting position. Course Vital Signs: Vital signs: Vital Signs Temperature 99 F 09/28/24 20:30 Pulse Rate 89 09/28/24 21:38 Respiratory Rate 16 09/28/24 20:30 Blood Pressure 124/65 09/28/24 21:38 Pulse Oximetry 100 09/28/24 21:38 MDM - Dizziness Medical Decision Making Patient with vertigo and symptoms seem consistent with benign positional vertigo. No significant abnormality noted on labs or imaging other than does have some fluid in the right mastoid air cells. Patient does not have any tenderness over the right mastoid. There is no evidence of otitis media. Based on CT finding we will place patient on Augmentin but will also give patient prednisone to help with her vertigo. Will have patient follow-up with ENT to see if any further evaluation is needed for the right mastoid fluid and for treatment of BPV Lab Data 09/28/24 20:32 09/28/24 20:32 Radiology Impressions Chest X-Ray 09/28/24 20:49 IMPRESSION: No acute cardiopulmonary disease. Head CT 09/28/24 20:49 IMPRESSION: 1. No acute intracranial pathology. 2. Fluid within the left mastoid air cells. Correlate with possible mastoiditis. Laboratory Results WBC 7.00 10^3/uL (3.29-11.43) 09/28/24 20:32 RBC 3.92 10^6/uL (3.85-5.65) 09/28/24 20:32 Hgb 10.90 g/dL (11.27-16.99) L 09/28/24 20:32 Hct 34.3 % (36-47) L 09/28/24 20:32 MCV 87.5 fl (85-98) 09/28/24 20:32 MCH 27.8 pg (27-33) 09/28/24 20: MCHC 31.8 g/dL (30-55) 09/28/24 20:32 RDW 13.2 % (12.1-15.1) 09/28/24 20:32 Plt Count 206 10^3/cmm (157-399) 09/28/24 20:32 MPV 9.4 fL (7.4-10.4) 09/28/24 20:32 Neut % (Auto) 63.7 % 09/28/24 20:32 Lymph % (Auto) 27.6 % 09/28/24 20:32 [place] % (Auto) 5.6 % 09/28/24 20:32 Eos % (Auto) 2.1 % 09/28/24 20:32 Baso % (Auto) 0.6 % 09/28/24 20: Neut # (Auto) 4.46 10^3/uL (1.8-7.7) 09/28/24 20:32 Lymph # (Auto) 1.9 10^3/uL (0.8-4.8) 09/28/24 20:32 [place] # (Auto) 0.4 10^3/uL (0.2-0.9) 09/28/24 20: Eos # (Auto) 0.2 10^3/uL (0.0-0.8) 09/28/24: Baso # (Auto) 0.0 10^3/uL (0.0-0.1) 09/28/24 20: Nucleated RBC % (auto) 0 % 09/28/24: Nucleated RBCs # 0.0 /100WBC 09/28/24 20:32 Sodium 140 mmol/L (136-145) 09/28/24 20: Potassium 3.9 mmol/L (3.5-5.1) 09/28/24 20: Chloride 108 mmol/L (98-107) H 09/28/24 20: Carbon Dioxide 21 mmol/L (22-29) L 09/28/24 20: Anion Gap 14.9 (5-19) 09/28/24 20:32 BUN 17 mg/dL (8-23) 09/28/24 20: Creatinine 0.7 mg/dL (0.5-0.9) 09/28/24: GFR Calculation 83.5 mL/min (90-130) L 09/28/24 20: Glucose 105 mg/dL (65-115) 09/28/24 20:32 Calculated Osmolality 292 mOsm/kg (285-295) 09/28/24 20:32 Calcium 9.0 mg/dL (8.5-10.5) 09/28/24 20:32 Total Bilirubin 0.2 mg/dL (0.15-1.2) 09/28/24 20:32 AST 17 U/L (0-32) 09/28/24 20:32 ALT 10 U/L (0-33) 09/28/24 20:32 Alkaline Phosphatase 51 U/L (35-105) 09/28/24 20:32 Troponin T Baseline < 6 ng/L (0-10) 09/28/24 20:32 Troponin T 120 Minute < 6.0 ng/L (0-10) 09/28/24 22:05 Delta Troponin T 0 ABS# (0-10) 09/28/24 22:05 Total Protein 6.4 g/dL (6.6-8.7) L 09/28/24 20:32 Albumin 3.8 g/dL (3.5-5.2) 09/28/24 20:32 Globulin 2.6 g/dL (1.3-4.6) 09/28/24 20:32 Amorphous Sediment Not Reportable 09/28/24 22:33 All radiology interpretation(s) finalized by discharge Discharge Plan Discharge Patient Disposition: Home Clinical Impression: BPV (benign positional vertigo) Qualifiers: Laterality: right Qualified Code(s): H81.11 - Benign paroxysmal vertigo, right ear Condition: Stable Prescriptions: New prednisone 20 mg tablet 20 mg PO BID 5 Days Qty: 10 0RF amoxicillin-pot clavulanate 875-125 mg tablet 1 tab PO Q12H Qty: 20 0RF No Action naproxen sodium [Aleve] 220 mg tablet 220 mg PO BID PRN (Reason: Pain, Mild) (DME) Custom Molded Sole Supports See Rx Instructions .Route .MEDSUPPLY Qty: 1 0RF Rx Instructions: As directed minoxidil 2 % solution 1 ml topical BID betamethasone dipropionate 0.05 % cream 1 applic topical DAILY PRN (Reason: skin irritation) Qty: 15 0RF cholestyramine (with sugar) 4 gram powder See Rx Instructions .ROUTE .COMPLEX Qty: 378 2RF Dose Instruction: MIX AND DRINK 4 G BY MOUTH DAILY ADMINISTER W/MEAL; AVOID OTHER MEDS WITHIN 1HR BEFORE OR 4 TO 6 HOURS AFTER DOSE Rx Instructions: MIX AND DRINK 4 G BY MOUTH DAILY ADMINISTER W/MEAL; AVOID OTHER MEDS WITHIN 1HR BEFORE OR 4 TO 6 HOURS AFTER DOSE levothyroxine 75 mcg tablet See Rx Instructions .ROUTE .COMPLEX Qty: 90 0RF Dose Instruction: TAKE ONE TABLET BY MOUTH DAILY. Rx Instructions: TAKE ONE TABLET BY MOUTH DAILY. 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
[2024-09-28 22:54] LABS: Add Urine Culture? No
== END 2024-09-28 22:54 | disposition home or self-care (01) ==
PROVIDERS: Emergency Provider Emergency Medicine; PCP Family Medicine
DX: H81.11 Benign paroxysmal vertigo, right ear (principal)
CPT/HCPCS: 36415; 70450; 71045; 80053; 81001; 84484; 85025; 93005; 96374; 96375; 99285; J0780; J1200; J7030; J8597

== ENCOUNTER 2024-11-13 09:09 | Outpatient (CLI) | payer MEDICARE, SELFPAY ==
--- NOTE | 2024-11-13 09:13 | MM_ITS ---
WS: [id number] BILATERAL 3D TOMOSYNTHESIS DIGITAL SCREENING MAMMOGRAPHY WITH CAD CLINICAL INFORMATION: SCREENING HISTORY: Screening mammogram. No current complaints. COMPARISON: 2023 TECHNIQUE: Bilateral CC and MLO views. FINDINGS: The breasts are composed of heterogeneous fibroglandular density tissue, which can limit the detection of small underlying mass lesions. No suspicious mass, asymmetry, calcifications, or architectural distortion. No evidence of malignancy. MM/MM scr tomosynthesis [id number] IMPRESSION: DENSITY: The breasts are heterogeneously dense, which may obscure small masses. BI-RADS: 1 - Negative FOLLOW UP: 1 Year Follow-up Recommend return to annual screening mammography.
== END 2024-11-13 09:10 | disposition home or self-care (01) ==
PROVIDERS: PCP Family Medicine; Visit Provider Family Medicine
DX: Z12.31 Encounter for screening mammogram for malignant neoplasm of breast (principal); R92.333 Mammographic heterogeneous density, bilateral breasts
CPT/HCPCS: 77063; 77067

== ENCOUNTER 2025-02-04 15:35 | Outpatient (CLI) | payer MEDICARE, SELFPAY ==
--- NOTE | 2025-02-04 15:46 | MR_ITS ---
WS: [id number] MRI HEAD WITH CONTRAST WITH ATTENTION TO THE INTERNAL AUDITORY CANALS TECHNIQUE: Sagittal T1, T2 axial, T2 axial flair, axial susceptibility weighted imaging, axial diffusion weighted images, and coronal T2 images were obtained. Pre and post T1 axial and post T1 coronal images. ADC and FSPGR images. Post gadolinium images with attention to the internal auditory canals. Axial fiesta imaging. CLINICAL INFORMATION: BILATERAL HEARING LOSS COMPARISON: MRI 2017 FINDINGS: Proximal 7th and 8th cranial nerves are normal in appearance. Normal trigeminal nerve root entry zones. No evidence of enhancing IAC or CP angle mass. Partial opacification of the LEFT mastoid air cells. Paranasal sinuses and RIGHT mastoid air cells are well aerated. Normal posterior nasopharynx. No hemosiderin. No abnormal gadolinium enhancement. Moderate supratentorial white matter changes. Moderate parenchymal volume loss. No other acute findings. MR/MR iac's wo/w con* [id number] IMPRESSION: 1. No evidence of restricted diffusion to suggest acute ischemia. 2. No evidence of enhancing IAC or CP angle mass. Normal trigeminal nerve root entry zones. 3. Partial opacification LEFT mastoid air cells. Normal posterior nasopharynx. 4. Moderate patchy supratentorial white matter changes can be seen with hypert ension, diabetes and small vessel changes in a patient this age. Moderate paren chymal volume loss. White matter changes demonstrate minimal progression since 2017 5. No hemosiderin.
[2025-02-04] MEDS: gadobenate dimeglumine 20 mL vial IV (16:48)
== END 2025-02-04 15:36 | disposition home or self-care (01) ==
LOC: RAD 15:38
PROVIDERS: PCP Family Medicine; Visit Provider Otolaryngology
DX: H90.3 Sensorineural hearing loss, bilateral (principal); H81.399 Other peripheral vertigo, unspecified ear; R90.82 White matter disease, unspecified
CPT/HCPCS: 70553

== ENCOUNTER 2025-03-26 14:16 | Outpatient (CLI) | payer MEDICARE, SELFPAY ==
--- NOTE | 2025-03-26 14:30 | XR_ITS ---
WS: [id number] DEXA (DUAL ENERGY X-RAY ABSORPTIOMETRY) Bone mineral density was performed using a [employer] machine. HISTORY: osteoporosis screening COMPARISON: 07/14/2021 Lumbar spine BMD (L1-L4): 1.131 g/cm2 T score: -0.4 Z score: 0.9 Total hip BMD: Left: 0.989 g/cm2. T score: -0.1 Z score: 1.0 Right: 0.996 g/cm2. T score: -0.1 Z score: 1.0 10 year probability of a major osteoporotic fracture is 11.4%. Compared to the prior study from 07/14/2021. Lumbar spine bone mineral density has decreased by 3.3%. Bilateral hips bone mineral density has decreased by 4.0%. XR/XR DEXA axial skeleton* [id number] IMPRESSION: NORMAL BONE MINERAL DENSITY based upon the WHO classification for females. Significant decrease in bone mineral density within both the lumbar spine and h ips since the prior study.
== END 2025-03-26 14:17 | disposition home or self-care (01) ==
LOC: RAD 14:19
PROVIDERS: PCP Family Medicine; Visit Provider Family Medicine
DX: Z13.820 Encounter for screening for osteoporosis (principal); Z78.0 Asymptomatic menopausal state
CPT/HCPCS: 77080

== ENCOUNTER → 2025-04-08 11:51 | Outpatient (BNVA) | payer MEDICARE, SELFPAY | PROVIDERS: PCP Family Medicine; Visit Provider Family Medicine | DX: Z13.1 Encounter for screening for diabetes mellitus (principal); Z13.6 Encounter for screening for cardiovascular disorders; K90.89 Other intestinal malabsorption; E03.9 Hypothyroidism, unspecified; E53.8 Deficiency of other specified B group vitamins; G63 Polyneuropathy in diseases classified elsewhere; R53.83 Other fatigue; L65.9 Nonscarring hair loss, unspecified | CPT/HCPCS: 80053; 80061; 82306; 82607; 84443; 85025 ==